=== PATIENT | female | born 1965 | race Caucasian/White ===

== ENCOUNTER 2017-05-14 22:40 | Emergency (ER) | payer MEDICAID ==
[~2017-05-14] VITALS: Ht 162.6 cm; Wt 84.8 kg
[2017-05-14 22:45] VITALS: Ht 162.6 cm; Wt 84.8 kg
[2017-05-15 00:16] LABS: BASOPHIL % 0.1 % (0-2); PLATELET COUNT 230 x10^3mcL (130-400); RED CELL DISTRIBUTION WIDTH 13.6 % (11.5-14.5)
[2017-05-15 00:20] LABS: CALCIUM 8.5 mg/dL (8.5-10.1); CARBON DIOXIDE 25.2 mmol/L (21-32); CHLORIDE SERUM 107 mmol/L (98-107); CREATININE SERUM 0.9 mg/dL (0.6-1.0); GFR1 > 60 mL/min; GLUCOSE SERUM 89 mg/dL (74-106); POTASSIUM SERUM 3.3 mmol/L (3.5-5.1); SODIUM SERUM 141 mmol/L (136-145)
[2017-05-15 00:27] LABS: ALBUMIN 3.6 g/dL (3.4-5.0); ALKALINE PHOSPHATASE 65 U/L (46-116); ALT/SGPT 60 U/L (14-59); AST/SGOT 33 U/L (15-37); BILIRUBIN TOTAL 0.1 mg/dL (0.20-1.00); LIPASE 270 IU/L (73-393); TOTAL PROTEIN, SERUM 7.5 g/dL (6.4-8.2)
[2017-05-15 01:57] VITALS: BP 136/77
== END 2017-05-15 01:57 | disposition home or self-care (01) ==
LOC: ED 22:40
PROVIDERS: Emergency Medicine
DX: R10.11 Right upper quadrant pain (principal); I10 Essential (primary) hypertension; R11.2 Nausea with vomiting, unspecified; R19.7 Diarrhea, unspecified; E07.9 Disorder of thyroid, unspecified; Q87.1 Congenital malformation syndromes predominantly associated with short stature; Z87.19 Personal history of other diseases of the digestive system; Z98.890 Other specified postprocedural states
CPT/HCPCS: 36415; J1885; Q0092; Q0162

== ENCOUNTER 2017-08-13 23:04 | Emergency (ER) | payer MEDICAID ==
[~2017-08-13] VITALS: Ht 162.6 cm; Wt 84.9 kg
[2017-08-13 23:53] VITALS: BP 130/86; Ht 162.6 cm; Wt 84.9 kg
== END 2017-08-14 00:50 | disposition home or self-care (01) ==
LOC: ED 23:04
DX: L30.9 Dermatitis, unspecified (principal); L98.0 Pyogenic granuloma; I10 Essential (primary) hypertension

== ENCOUNTER 2017-08-18 23:22 | Emergency (ER) | payer MEDICAID ==
[~2017-08-18] VITALS: Ht 162.6 cm; Wt 80.7 kg
[2017-08-18 23:28] VITALS: BP 140/81; Ht 162.6 cm; Wt 80.7 kg
== END 2017-08-19 02:10 | disposition home or self-care (01) ==
LOC: ED 23:22
DX: S61.512D Laceration without foreign body of left wrist, subsequent encounter (principal); I10 Essential (primary) hypertension; L02.416 Cutaneous abscess of left lower limb; X58.XXXD Exposure to other specified factors, subsequent encounter

== ENCOUNTER 2017-08-23 00:14 | Emergency (ER) | payer MEDICAID ==
[~2017-08-23] VITALS: Ht 162.6 cm; Wt 84.8 kg
[2017-08-23 00:19] VITALS: Ht 162.6 cm; Wt 84.8 kg
[2017-08-23 01:29] VITALS: BP 126/83
== END 2017-08-23 01:29 | disposition home or self-care (01) ==
LOC: ED 00:14
DX: S61.512D Laceration without foreign body of left wrist, subsequent encounter (principal); I10 Essential (primary) hypertension; X58.XXXD Exposure to other specified factors, subsequent encounter

== ENCOUNTER 2017-12-19 23:30 | Emergency (ER) | payer MEDICAID ==
[~2017-12-19] VITALS: Ht 165.1 cm; Wt 82.2 kg
[2017-12-19 23:36] VITALS: Ht 165.1 cm; Wt 82.2 kg
[2017-12-20 00:27] VITALS: BP 148/88
== END 2017-12-20 00:27 | disposition home or self-care (01) ==
LOC: ED 23:30
DX: J06.9 Acute upper respiratory infection, unspecified (principal); M94.0 Chondrocostal junction syndrome [Tietze]; I10 Essential (primary) hypertension; M35.00 Sjogren syndrome, unspecified; Z98.890 Other specified postprocedural states

== ENCOUNTER 2018-03-27 01:09 | Emergency (ER) | payer MEDICAID ==
[~2018-03-27] VITALS: Ht 162.6 cm; Wt 81.6 kg
[2018-03-27 01:24] VITALS: Ht 162.6 cm; Wt 81.6 kg
[2018-03-27 01:57] LABS: BASOPHIL % 0.6 % (0-2); PLATELET COUNT 240 x10^3mcL (130-400); RED CELL DISTRIBUTION WIDTH 12.7 % (11.5-14.5)
[2018-03-27 02:22] LABS: CALCIUM 9.6 mg/dL (8.5-10.1); CARBON DIOXIDE 25.1 mmol/L (21-32); CHLORIDE SERUM 103 mmol/L (98-107); CREATININE SERUM 0.9 mg/dL (0.6-1.0); GFR1 > 60 mL/min; GLUCOSE SERUM 119 mg/dL (74-106); POTASSIUM SERUM 3.6 mmol/L (3.5-5.1); SODIUM SERUM 139 mmol/L (136-145)
[2018-03-27 02:27] LABS: ALBUMIN 3.8 g/dL (3.4-5.0); ALKALINE PHOSPHATASE 63 U/L (46-116); ALT/SGPT 33 U/L (14-59); AST/SGOT 18 U/L (15-37); BILIRUBIN TOTAL 0.36 mg/dL (0.20-1.00); TOTAL PROTEIN, SERUM 8.4 g/dL (6.4-8.2)
[2018-03-27 02:30] LABS: microscopic required? NO
[2018-03-27 03:04] LABS: UA SPECIFIC GRAVITY <=1.005 (1.005-1.035); urine erythrocyte NEGATIVE (NEGATIVE)
[2018-03-27 03:48] VITALS: BP 115/58
== END 2018-03-27 03:48 | disposition home or self-care (01) ==
LOC: ED 01:09
PROVIDERS: Emergency Medicine
DX: M79.10 Myalgia, unspecified site (principal); R09.81 Nasal congestion; R05 Cough; I10 Essential (primary) hypertension; Z98.890 Other specified postprocedural states
CPT/HCPCS: 87804; J7030; Q0092